=== PATIENT | female | born 1955 | race Two or more races ===

== ENCOUNTER 2023-11-18 21:56 | Emergency (ER) | payer MEDICARE, MEDICAID ==
[~2023-11-18] VITALS: Ht 149.9 cm; Wt 72.7 kg
[2023-11-18 22:06] VITALS: BP 137/69; PULSE 96; RESP 17; TEMP 98.5
[2023-11-18] MEDS: CEPHALEXIN MONOHYDRATE 500 MG CAPSULE PO ONE (23:25)
[2023-11-18] MEDS: PERTUSS(ACELL),DIPH,TET/PF 0.5 ML SYRINGE [ADULT] IM. ONE (23:28)
[2023-11-18] MEDS ORDERED: CEPH-558 PO (23:29)
== END 2023-11-19 | disposition home or self-care (01) ==
LOC: EMS 22:00
DX: S61.215A Laceration without foreign body of left ring finger without damage to nail, initial encounter (principal); W26.0XXA Contact with knife, initial encounter; Y93.89 Activity, other specified; Y92.89 Other specified places as the place of occurrence of the external cause; Y99.8 Other external cause status
CPT/HCPCS: 12001; 90471; 90715; 99283